=== PATIENT | male | born 1950 | race Caucasian/White ===

== ENCOUNTER → 2016-08-01 | Outpatient (CLI) | payer BC, OTHER ==
[~2016-08-01] MED LIST: LANS30CA12 PO; LISI-461 PO; LRT5 PO; SIMV20TA2 PO
== END | disposition home or self-care (01) ==
LOC: C.CPL 10:56
PROVIDERS: ATTEND Orthopaedic Surgery
DX: Z01.810 Encounter for preprocedural cardiovascular examination (principal)

== ENCOUNTER → 2016-10-31 | Outpatient (CLI) | payer BC ==
[2016-10-31 12:51] LABS: BASO % 0.4 %; BASO ABS # 0.02 K/uL (0-0.2); COMPLETE YES; EOS % 4.3 %; HEMATOCRIT 44.5 % (42-52); LYMPH ABS # 2.25 K/uL (1.2-3.4); MEAN CELL VOLUME 96.9 fL (80-100); MEAN CORPUSCULAR HEMOGLOBIN 32.5 pg (25-34); MEAN CORPUSCULAR HGB CONC 33.5 g/dl (32-36); MEAN PLATELET VOLUME 11.1 fL (7.4-10.4); MONO % 10.8 %; NEUT % 44.5 %; PLATELET COUNT 187 K/uL (130-400); RED BLOOD COUNT 4.59 M/uL (4.7-6.1); WHITE BLOOD COUNT 5.63 K/uL (4.8-10.8)
[2016-10-31 13:26] LABS: ALT/SGPT 41 U/L (12-78); BLOOD UREA NITROGEN 14 mg/dl (7-18); BUN/CREATININE RATIO 14.2 (10-20); CALCIUM 9.2 mg/dl (8.5-10.1); CARBON DIOXIDE 32 mmol/L (21-32); CHLORIDE 106 mmol/L (98-107); CREATININE 0.98 mg/dl (0.60-1.40); GLUCOSE 97 mg/dl (70-99); SODIUM 141 mmol/L (136-145)
[2016-10-31 13:31] LABS: ALB/GLOB RATIO 1.2 (0.9-2); ALKALINE PHOSPHATASE 61 U/L (45-117); AST/SGOT 18 U/L (15-37); CHOLESTEROL 179 mg/dl (0-200); CHOLESTEROL/HDL RATIO 3.4; HDL CHOLESTEROL 52 mg/dl; PROSTATE SPECIFIC ANTIGEN 0.881 ng/ml (0.000-4.000); TRIGLYCERIDES 119 mg/dl (0-150); VERY LOW DENSITY LIPOPROT CALC 24 mg/dl
== END | disposition home or self-care (01) ==
LOC: C.LABSPEC 11:57
PROVIDERS: ATTEND Internal Medicine
DX: I10 Essential (primary) hypertension (principal); E78.5 Hyperlipidemia, unspecified; R30.0 Dysuria; R32 Unspecified urinary incontinence

== ENCOUNTER → 2016-11-29 | Outpatient (CLI) | payer BC ==
--- NOTE | 2016-12-01 15:05 | POLYSOMNOGRAPH REPORT ---
CLINICAL DATA: A 66-year-old male with BMI of 29.6 referred by myself and Dr. Isaac with a history of loud snoring, witnessed apneic episodes with some daytime fatigue. On the evening of 11/29/2016, a home sleep apnea test was performed using a [id number] type 3 monitor. RECORDING RESULTS: Total recording time was 9.6 hours. The patient's monitoring time and estimated sleep time was 7.1 hours. RESPIRATORY DATA: Mild sleep apnea/hypopnea was documented. The JEIMY was 10.7. There were 6 obstructive, 4 mixed, and 2 central apneic episodes. There were 64 hypopneic episodes. The longest respiratory event recorded was 32 seconds. OXIMETRY DATA: Nocturnal hypoxemia was seen. Oxygen tim was 84%. Mean saturation was 92%. Time below 89% was 13 minutes. HEART RATE DATA: Heart rates ranged from 50 to 62 beats per minute. SNORING DATA: Snoring was recorded through the night. IMPRESSION: Mild sleep apnea/hypopnea with an JEIMY of 10.7 with mild nocturnal hypoxemia. RECOMMENDATIONS: The patient will be seen back in the sleep clinic to review options for therapy including an oral appliance or CPAP. BERNARDO
== END | disposition home or self-care (01) ==
LOC: C.NEUR 09:16
PROVIDERS: ATTEND Internal Medicine Pulmonary Disease
DX: G47.36 Sleep related hypoventilation in conditions classified elsewhere (principal); G47.19 Other hypersomnia; R53.83 Other fatigue; I10 Essential (primary) hypertension; R06.83 Snoring; R06.81 Apnea, not elsewhere classified

== ENCOUNTER → 2016-12-01 | Outpatient (CLI) | payer BC ==
[~2016-12-01] VITALS: Ht 182.9 cm; Wt 97.4 kg
[2016-12-01 15:47] VITALS: BP 133/81; PULSE 72; Ht 182.9 cm; Wt 97.4 kg
== END | disposition home or self-care (01) ==
LOC: C.NEUR 13:16
PROVIDERS: ATTEND Internal Medicine Pulmonary Disease
DX: G47.30 Sleep apnea, unspecified (principal); R06.83 Snoring; I10 Essential (primary) hypertension

== ENCOUNTER → 2017-05-09 | Outpatient (CLI) | payer BC ==
[2017-05-09 13:01] LABS: BLOOD UREA NITROGEN 19 mg/dl (7-18); BUN/CREATININE RATIO 17.9 (10-20); CARBON DIOXIDE 29 mmol/L (21-32); CHLORIDE 108 mmol/L (98-107); CHOLESTEROL 159 mg/dl (0-200); CREATININE 1.04 mg/dl (0.60-1.40); GLUCOSE 100 mg/dl (70-99); SODIUM 141 mmol/L (136-145)
[2017-05-09 13:05] LABS: CHOLESTEROL/HDL RATIO 3.1; HDL CHOLESTEROL 52 mg/dl; TRIGLYCERIDES 76 mg/dl (0-150); VERY LOW DENSITY LIPOPROT CALC 15 mg/dl
== END | disposition home or self-care (01) ==
LOC: C.LABSPEC 11:58
PROVIDERS: ATTEND Internal Medicine
DX: I10 Essential (primary) hypertension (principal); E78.5 Hyperlipidemia, unspecified

== ENCOUNTER → 2017-11-14 | Outpatient (CLI) | payer BC ==
[2017-11-14 12:48] LABS: BASO % 0.5 %; BASO ABS # 0.03 K/uL (0-0.2); EOS % 2.7 %; EOS ABS # 0.17 K/uL (0-0.5); HEMATOCRIT 44.4 % (42-52); HEMOGLOBIN 15.6 g/dL (14.0-18.0); IG# 0.01 K/uL (0.00-0.02); LYMPH % 28.7 %; LYMPH ABS # 1.78 K/uL (1.2-3.4); MEAN CELL VOLUME 95.7 fL (80-100); MEAN CORPUSCULAR HEMOGLOBIN 33.6 pg (25-34); MEAN CORPUSCULAR HGB CONC 35.1 g/dl (32-36); MEAN PLATELET VOLUME 10.9 fL (7.4-10.4); MONO ABS # 0.68 K/uL (0.11-0.59); NEUT % 56.9 %; NEUT ABS # 3.54 K/uL (1.4-6.5); PLATELET COUNT 179 K/uL (130-400); RED CELL DISTRIBUTION WIDTH CV 13.2 % (11.5-14.5); RED CELL DISTRIBUTION WIDTH SD 46.1 fL (36.4-46.3); WHITE BLOOD COUNT 6.21 K/uL (4.8-10.8)
[2017-11-14 12:53] LABS: ALT/SGPT 44 U/L (12-78); AST/SGOT 32 U/L (15-37); BLOOD UREA NITROGEN 15 mg/dl (7-18); CALCIUM 8.9 mg/dl (8.5-10.1); CARBON DIOXIDE 27 mmol/L (21-32); CHOLESTEROL 150 mg/dl (0-200); CREATININE 1.02 mg/dl (0.60-1.40); GLUCOSE 98 mg/dl (70-99); POTASSIUM 4.1 mmol/L (3.5-5.1); SODIUM 138 mmol/L (136-145)
[2017-11-14 12:57] LABS: ALKALINE PHOSPHATASE 56 U/L (45-117); LDL CHOLESTEROL (DIRECT) 95 mg/dl
== END | disposition home or self-care (01) ==
LOC: C.LABSPEC 12:12
PROVIDERS: ATTEND Internal Medicine
DX: I10 Essential (primary) hypertension (principal); E78.5 Hyperlipidemia, unspecified; R06.00 Dyspnea, unspecified; N40.0 Benign prostatic hyperplasia without lower urinary tract symptoms

== ENCOUNTER → 2017-11-21 | Outpatient (CLI) | payer BC ==
[~2017-11-21] MED LIST changes: +PERFLUTREN LIPID MICROSPHERE (DEFINITY) IV ONE
--- NOTE | 2017-11-21 15:56 | EXERCISE STRESS ECHO ---
*NOTICE TO RECEIVING LIBERTARIAN AGENCY This information is strictly Confidential and protected under [place] law. [place] law prohibits you from making any further disclosure of this information unless further disclosure is expressly permitted by the written consent of the person to whom it pertains or is authorized by law. A general authorization for the release of medical or other information is not sufficient for this purpose. Hospital accepts no responsibility if the information is made available to any other person, INCLUDING THE PATIENT. Interpretation Summary * Name: RHETT XIE Study Date: 11/21/2017 09:47 AM BP: 145/81 mmHg * Patient Location: [facility] HR: 81 * : 1950 (M/d/yyyy) Gender: Male Height: 72 in * Age: 67 yrs Ethnicity: [place] Weight: 215 lb * Ordering Physician: Wayne Lugo * Referring Physician: Wayne Lugo * Performed By: Silvia Medley RDCS * * Reason For Study: Chest pain, exertional dyspnea * BSA: 2.2 m2 * -- Conclusions -- * 1. Normal stress echocardiogram at 10.2 METS and peak heart rate of 81% predicted maximum. * 2. No exercise-induced chest pain. * 3. No EKG changes. * 4. Baseline echocardiogram notes normal left systolic function, mild left ventricle hypertrophy, and diastolic dysfunction. Procedure Details * ECHOEX, CPT #[id number] * ECHO DOPPLER, CPT #[id number] * ECHO COLOR FLOW, CPT #[id number] * A contrast injection of Definity was performed to improve assessment of LV function. * Contrast was injected into an intravenous site in the right arm. * One vial of Definity ultrasound contrast was diluted in normal saline to a total volume of 10 ml. A total of '2' ml of solution was administered during imaging. * Lot # [id number] of Definity utilized for procedure. * Expiration date 1 SEP 03. * The attending nurse who injected the contrast agent was Anupama Villarreal RN. Left Ventricle * The left ventricle is normal in size. * There is mild concentric left ventricular hypertrophy. * Ejection Fraction = >70 %. * Resting wall motion: Normal. Stress wall motion: Appropriate increase in Left ventricular systolic function and decrease in cavity size. No stress induced segmental wall motion abnormalities. * The left ventricular ejection fraction increases normally with stress. The left ventricular end-systolic cavity size reduces post-stress (normal response). The left ventricular wall motion with stress is normal. Right Ventricle * The right ventricle is grossly normal size. * The right ventricular systolic function is normal as assessed by tricuspid annular plane systolic excursion (TAPSE) (normal >1.5 cm). Atria * The left atrium is mildly dilated. * Borderline right atrial enlargement. * There is no evidence of atrial septal defect, but resolution does not allow assessment for a patent foramen ovale. Mitral Valve * The mitral valve is grossly normal. * There is no mitral valve stenosis. * There is trace mitral regurgitation. Tricuspid Valve * The tricuspid valve is not well visualized, but is grossly normal. * There is no tricuspid stenosis. * Significant tricuspid regurgitation is absent. Aortic Valve * The aortic valve is normal in structure and function. * Aortic stenosis is absent. * No aortic regurgitation is present. Pulmonic Valve * The pulmonary valve is not well seen, but the Doppler examination is normal without significant regurgitation or stenosis. Great Vessels * Mild aortic root dilatation. * The pulmonary is not well visualized. Pericardium * There is no pericardial effusion. Stress Parameters * Normal baseline electrocardiogram. * Stress ECG: No ST changes. No arrhythmias. * The stress portion of this study was personally supervised by the undersigned interpreting physician. * Rest heart rate was '81' BPM. * Rest blood pressure was '145/81' * Maximum heart rate achieved was 127 bpm. * Maximum heart rate was 81 % of maximum age-predicted heart rate. * Maximum blood pressure was '208/88' * Total exercise time was '9:04' * Maximum exercise MET level achieved was '10.20' METS * Maximum treadmill speed was '4.20' miles per hour. * Maximum treadmill elevation was '16.00'% grade. * Exercise was terminated due to 'patient fatigue' Left Ventricular Diastolic Function * Grade I diastolic dysfunction, (abnormal relaxation pattern). MMode 2D Measurements and Calculations IVSd 1.2 cm LVIDd 3.7 cm LVIDs 2.2 cm LVPWd 0.94 cm IVS/LVPW 1.3 FS 41.0 % EDV(Teich) 59.0 ml ESV(Teich) 16.1 ml EF(Teich) 72.7 % EDV(cubed) 51.6 ml ESV(cubed) 10.6 ml EF(cubed) 79.5 % LV mass(C)d 125.7 grams LV mass(C)dI 57.2 grams/m\S\2 SV(Teich) 42.9 ml SI(Teich) 19.5 ml/m\S\2 SV(cubed) 41.0 ml SI(cubed) 18.7 ml/m\S\2 Ao root diam 4.1 cm Ao root area 13.3 cm\S\2 ACS 2.3 cm LA dimension 3.0 cm asc Aorta Diam 3.3 cm LA/Ao 0.74 LVOT diam 2.0 cm LVOT area 3.3 cm\S\2 LVAd ap4 32.8 cm\S\2 LVLd ap4 7.9 cm EDV(MOD-sp4) 107.6 ml EDV(sp4-el) 114.8 ml LVAs ap4 16.0 cm\S\2 LVLs ap4 6.3 cm ESV(MOD-sp4) 32.5 ml ESV(sp4-el) 34.3 ml EF(MOD-sp4) 69.8 % EF(sp4-el) 70.1 % LVAd ap2 31.3 cm\S\2 LVLd ap2 8.1 cm EDV(MOD-sp2) 97.9 ml EDV(sp2-el) 102.6 ml LVAs ap2 14.8 cm\S\2 LVLs ap2 6.2 cm ESV(MOD-sp2) 28.5 ml ESV(sp2-el) 30.2 ml EF(MOD-sp2) 70.9 % EF(sp2-el) 70.6 % LVLd %diff 2.2 % EDV(MOD-bp) 105.0 ml LVLs %diff -2.90 % ESV(MOD-bp) 30.1 ml EF(MOD-bp) 71.3 % SV(MOD-sp4) 75.1 ml SI(MOD-sp4) 34.2 ml/m\S\2 SV(MOD-sp2) 69.4 ml SI(MOD-sp2) 31.6 ml/m\S\2 SV(MOD-bp) 74.9 ml SI(MOD-bp) 34.1 ml/m\S\2 SV(sp4-el) 80.5 ml SI(sp4-el) 36.6 ml/m\S\2 SV(sp2-el) 72.4 ml SI(sp2-el) 33.0 ml/m\S\2 Doppler Measurements and Calculations MV E max cindi 53.4 cm/sec MV A max cindi 82.5 cm/sec MV E/A 0.65 MV dec time 0.39 sec Ao V2 max 124.8 cm/sec Ao max PG 6.2 mmHg Ao max PG (full) 2.9 mmHg JF(V,A) 2.4 cm\S\2 JF(V,D) 2.4 cm\S\2 LV V1 max PG 3.3 mmHg LV V1 max 90.7 cm/sec PA V2 max 84.6 cm/sec PA max PG 2.9 mmHg PA acc slope 655.7 cm/sec\S\2 PA acc time 0.13 sec TR max cindi 75.9 cm/sec PA pr(Accel) 22.8 mmHg
== END | disposition home or self-care (01) ==
LOC: C.CPL 09:44
PROVIDERS: ATTEND Internal Medicine
DX: R06.09 Other forms of dyspnea (principal); R07.9 Chest pain, unspecified

== ENCOUNTER → 2017-11-23 | Outpatient (CLI) | payer BC ==
[~2017-11-23] MED LIST changes: -PERFLUTREN LIPID MICROSPHERE (DEFINITY) IV ONE
[2017-12-03 19:02] LABS: FECAL OCCULT BLOOD #1 NEGATIVE (NEGATIVE); FECAL OCCULT BLOOD #2 NEGATIVE (NEGATIVE); FECAL OCCULT BLOOD #3 NEGATIVE (NEGATIVE)
== END | disposition home or self-care (01) ==
LOC: C.LABSPEC 17:14
PROVIDERS: ATTEND Internal Medicine
DX: Z12.11 Encounter for screening for malignant neoplasm of colon (principal)